=== PATIENT | female | born 1970 | race Caucasian/White ===

== ENCOUNTER 2020-11-20 12:25 | Emergency (ER) | payer MEDICAID, OTHER, SELFPAY ==
--- NOTE | ~2020-11-20 | CT_ITS ---
EXAMINATION: CT ABDOMEN AND PELVIS WITH CONTRAST CLINICAL INFORMATION: Diarrhea. Umbilical pain. Evaluate for obstruction. COMPARISON: None TECHNIQUE: Multidetector volumetric images were obtained from the superior aspect of the liver through the pubic symphysis following administration 75 mL of Omnipaque 350 intravenous contrast. Sagittal and coronal reformatted images were obtained on the technologist's workstation. Oral contrast: No This CT examination was performed using dose optimization techniques as appropriate, variously including the following: *Automated exposure control *Adjustment of mA and/or kV according to patient size (this includes techniques or standardized protocols for targeted exams where dose is matched to indication/reason for exam; i.e. extremities or head) *Use of iterative reconstruction technique DLP: 673 mGy-cm FINDINGS: LUNG BASES: There are a few calcified granulomata within the left lower lobe. Mild bronchial wall thickening present. Mild mosaic attenuation likely relates to air trapping. LIVER, GALLBLADDER, AND BILIARY TREE: The liver is normal in size, shape, and attenuation. No focal hepatic lesion or biliary ductal dilatation is present. Cholecystectomy. PANCREAS: Unremarkable. SPLEEN: Unremarkable. ADRENAL GLANDS: Unremarkable. KIDNEYS AND URETERS: The kidneys are normal in size, shape, and attenuation. No hydronephrosis, hydroureter, or calculi seen. There is a 3.2 cm cyst in the lower pole of the right kidney, likely a simple cyst. No perinephric stranding. BLADDER: Unremarkable. GASTROINTESTINAL TRACT: No evidence of bowel obstruction. Submucosal fat deposition present within the terminal ileum and throughout the ascending colon. Lesser degrees of submucosal fat deposition throughout the transverse and left colon. Mild submucosal edema suspected within the left colon. No perienteric inflammation. Stomach and small bowel otherwise unremarkable. Normal appendix. ABDOMINAL WALL: No significant hernia is appreciated. LYMPH NODES: Normal. VASCULAR: Unremarkable. PELVIC VISCERA: Uterus and ovaries unremarkable. OSSEOUS STRUCTURES: No acute or suspicious osseous abnormalities. CT/CT abdomen pelvis w con IMPRESSION: * No evidence of bowel obstruction. * Mild left colitis suspected. * Nonspecific intramural fatty deposition throughout the colon. This can be seen as a normal finding in the setting of obesity, but can also been seen in association with inflammatory bowel disease. * Cholecystectomy.
[2020-11-20 14:53] LABS: MANUAL DIFF FLAG NO
[2020-11-20] MEDS: 0.9 % Sodium Chloride 1,000 ML 999 ML IV (14:54)
[2020-11-20] MEDS: Morphine Sulfate 4 MG/ML CARTRIDGE IVPUSH (14:54)
[2020-11-20 14:56] LABS: Basophils Percent Auto 0.2 % (0-2); Eosinophils Percent Auto 0.9 % (0-4); Hematocrit 35.4 % (37-47); Hemoglobin 11.9 g/dl (12.0-16.0); Imm Gran Abs Auto 0.02 X10*3/uL (0.00-0.03); Imm Gran Pct Auto 0.5 % (0.0-0.4); Lymphocytes Absolute Auto 1.3 X10*3/uL (1.2-4.9); Lymphocytes Percent Auto 30.1 % (20-40); Mean Corpuscular HGB Conc 33.6 g/dl (31.0-35.0); Mean Corpuscular Hemoglobin 37.3 pg (27.0-33.0); Mean Platelet Volume 8.9 fL (9.4-12.3); Monocytes Absolute Auto 0.4 X10*3/uL (0.1-1.2); Monocytes Percent Auto 8.9 % (2-11); Neutrophils Absolute Auto 2.5 X10*3/uL (2.0-8.3); Neutrophils Percent Auto 59.4 % (45-73); Platelet Count 200 X10*3/uL (160-400); Red Blood Count 3.19 X10*6/uL (4.20-5.50); Red Cell Distribution Width 13.2 % (11.0-16.0); White Blood Count 4.3 X10*3/uL (4.8-10.8)
[2020-11-20 15:08] LABS: Lactic Acid 0.8 mmol/L (0.5-2.0)
[2020-11-20 15:10] LABS: COVID-19 Test Negative (Negative)
[2020-11-20 15:33] LABS: Alanine Aminotransferase 373 U/L (0-31); Albumin Level 4.1 g/dL (3.5-5.0); Alkaline Phosphatase 150 U/L (39-117); Anion Gap 14 (12-20); Aspartate Amino Transferase 643 U/L (5-31); Bilirubin Total 1.6 mg/dL (0.0-1.0); Blood Urea Nitrogen 9 mg/dL (9-16); Calcium 8.9 mg/dL (8.4-10.2); Carbon Dioxide 22 mmol/L (22-29); Chloride 107 mmol/L (96-108); Estimated Glomerular Filt Rate > 60; Glucose Random 82 mg/dL (60-115); Lipase 28 U/L (8-78); Potassium 4.1 mmol/L (3.3-5.1); Sodium 139 mmol/L (135-145)
--- NOTE | 2020-11-20 16:10 | ED_ITS ---
HPI - General Adult General Chief complaint: Abdominal Pain Stated complaint: vomiting abd swelling Time Seen by Provider: 11/20/20 14:01 Source: patient Mode of arrival: ambulatory Limitations: language barrier (Mohawk speaking only, rn clinical documentation specialist used to obtain history) History of Present Illness HPI narrative: 50-year-old female who presents emergency department for evaluation of abdominal pain and diarrhea. The patient states that her symptoms started 4 days prior to evaluation. She states that she had multiple episodes of diarrhea, too numerous to count, the diarrhea was foamy , watery without any blood. The patient did take Imodium and her diarrhea resolved for 1 day and then return. For the last 2 days, she has had diarrhea which is too numerous to count. She has also developed pain in her umbilical area of her abdomen she states the pain is a constant, squeezing pain which is 10/10 in is worse when she moves her bowels. She does not feel bloated. She denied nausea or vomiting. She denied fever, chills, chest pain or shortness of breath. The patient states that she rarely gets diarrhea. She denied any recent travel. She has not been on any antibiotics over the last 2 months. The patient has not had a COVID-19 infection and has not been vaccinated. Related Data Previous Rx's Medication Instructions Recorded metoclopramide HCl [Reglan] 10 mg PO Q6H PRN #14 tab 11/20/20 morphine 15 mg PO Q4-6H PRN #10 tab 11/20/20 Allergies Allergy/AdvReac Type Severity Reaction Status Date / Time aspirin [ASPIRIN] Allergy Unknown SWELLING Unverified 05/08/20 17:56 Review of Systems Review of Systems: Yes all other systems are reviewed and are negative [facility] Past Medical History [facility] Narrative: Patient has a history of hypertension, GERD, gastritis, asthma, arrhythmias and chronic back pain. She had a cholecystectomy in the past. She smokes 1/2 to 1 pack of cigarettes per day. She denies alcohol or drug use. She is and her is here in the emergency department with her. Social History Social History Advance Directives: No Advance Directives Information Provided: No Physical Exam Vital Signs: Vital Signs: Last Vital Signs Temp 98.7 F 11/20/20 16:35 Pulse 98 11/20/20 16:35 Resp 18 11/20/20 16:35 BP 104/66 11/20/20 16:35 Pulse Ox 100 11/20/20 16:35 Body Mass Index 36.6 Const: General: cooperative Orientation/consciousness: oriented to person and oriented to place Limitations: no limitations HENMT: Head: Yes normal to inspection, Yes normocephalic and Yes atraumatic Ears: external ears normal General nose exam: Normal external nose present Face and sinus: Yes normal facial exam Mouth: Normal oral and palatal mucosa present Throat: Yes posterior oropharynx normal Eyes: Periorbital: periorbital findings normal Eyelids: Yes eyelids normal Conjunctivae: conjunctivae normal Sclerae: sclerae normal Corneas: corneas normal Pupils: Equal, round and reactive pupils present Direct Ophthalmoscopy: normal light reflex Neck: Neck: Yes full ROM, Yes no lymphadenopathy, Yes no meningeal signs, Yes trachea midline and Yes supple Chest: Chest palpation & inspection: normal inspection of the chest and normal palpation of entire chest wall Resp: Effort & Inspection: normal respiratory effort and able to speak in complete sentences Auscultation: clear to auscultation bilaterally Cardio: Rate: regular rate Rhythm: regular rhythm Heart sounds: S1 normal heart sound present, S2 normal heart sound present and no murmurs GI: Inspection: Yes normal to inspection Palpation (GI): Soft to palpation, Tenderness to palpation present (GI) periumbilically (Moderate), no guarding, not rigid and No hepatosplenomegaly present : General: Yes no CVA tenderness Back/Spine/Pelvis: Back: no CVA tenderness Cervical Spine: normal cervical lordosis Thoracic/Lumbar Spine: thoracic and lumbar spine normal to inspection Skin: Lesions: no lesions Rashes: no rashes Wounds: no wounds Neuro: General: oriented to person, oriented to place and no meningeal signs Cranial nerves: Yes CN's II-XII intact bilaterally and Yes Equal, round and reactive pupils present Cognition (Neuro): normal cognition Motor exam (neuro): 5/5 motor strength present throughout Extrem: General: Yes normal to inspection and Yes full ROM Psych: Appearance: well kempt Mental Status: mental status grossly normal Speech and movement: Normal speech and movement present Affect: normal affect Attitude: cooperative Thought process: Normal thought process present Thought content: Normal thought content present Course Course Course Narrative: 50-year-old female who presents emergency department for evaluation of 4 days intractable diarrhea with umbilical pain. Physical examination did reveal tenderness with palpation of the periumbilical area of her stomach otherwise was unremarkable. CBC, CMP, lipase, C diff, stool culture, CT scan of the abdomen pelvis with IV contrast. The patient's pain was treated with morphine 4 mg IV. I also ordered normal saline IV x1 L. 1622: The patient's laboratory evaluation revealed low WBC of 4300, mild anemia with an H&H of 11.9 and 35.4. The patient's LFTs were abnormal with elevations in her AST of 643, ALT of 373 and an alk-phos of 150. Patient's total bilirubin was also elevated at 1.6. 1745: The patient is feeling significantly better after the above treatment. CT scan of the abdomen pelvis did not reveal a clear etiology for the patient's pain, there was no bowel obstruction, no evidence of severe colitis. I will add viral hepatitis studies (hepatitis A, B and C) to the patient's blood work. The patient was not able to give us a stool sample here in the emergency department. The patient will be treated with morphine 15 mg every 4-6 hours as needed for pain in this will also help stop her diarrhea. The patient was also given a prescription for Zofran to treat her nausea. 1753: [facility] revealed regular prescription for tramadol over a 1 year search interval. Medical Decision Making Lab Data Result diagrams: 11/20/20 14:47 11/20/20 14:48 Labs: Lab Results 11/20/20 11/20/20 11/20/20 Range/Units 14:47 14:47 14:48 WBC 4.3 L (4.8-10.8) X10*3/uL RBC 3.19 L (4.20-5.50) X10*6/uL Hgb 11.9 L (12.0-16.0) g/dl Hct 35.4 L (37-47) % MCV 111.0 H (80-98) fL MCH 37.3 H (27.0-33.0) pg MCHC 33.6 (31.0-35.0) g/dl RDW 13.2 (11.0-16.0) % Plt Count 200 (160-400) X10*3/uL MPV 8.9 L (9.4-12.3) fL Immature Gran % (Auto) 0.5 H (0.0-0.4) % Neut % (Auto) 59.4 (45-73) % Lymph % (Auto) 30.1 (20-40) % [place] % (Auto) 8.9 (2-11) % Eos % (Auto) 0.9 (0-4) % Baso % (Auto) 0.2 (0-2) % Lymph # (Auto) 1.3 (1.2-4.9) X10*3/uL [place] # (Auto) 0.4 (0.1-1.2) X10*3/uL Eos # (Auto) 0.0 (0.0-0.4) X10*3/uL Baso # (Auto) 0.0 (0.0-0.2) X10*3/uL Abs Immat Gran (auto) 0.02 (0.00-0.03) X10*3/uL Absolute Neuts (auto) 2.5 (2.0-8.3) X10*3/uL Absolute Nucleated RBC 0.000 (0.0-0.012) X10*3/uL Nucleated RBC % (auto) 0.0 (0.0-0.2) /100WBC Sodium 139 (135-145) mmol/L Potassium 4.1 (3.3-5.1) mmol/L Chloride 107 (96-108) mmol/L Carbon Dioxide 22 (22-29) mmol/L Anion Gap 14 (12-20) BUN 9 (9-16) mg/dL Creatinine 0.80 (0.5-1.4) mg/dL Estim Creat Clear Calc TNP Estimated GFR > 60 Random Glucose 82 (60-115) mg/dL Lactic Acid (0.5-2.0) mmol/L Calcium 8.9 (8.4-10.2) mg/dL Total Bilirubin 1.6 H (0.0-1.0) mg/dL AST 643 H (5-31) U/L ALT 373 H (0-31) U/L Alkaline Phosphatase 150 H (39-117) U/L Total Protein 7.0 (6.5-8.0) g/dL Albumin 4.1 (3.5-5.0) g/dL Lipase 28 (8-78) U/L COVID-19 (CARLENE) Negative (Negative) COVID-19 Clin Com See Note 11/20/20 Range/Units 14:48 WBC (4.8-10.8) X10*3/uL RBC (4.20-5.50) X10*6/uL Hgb (12.0-16.0) g/dl Hct (37-47) % MCV (80-98) fL MCH (27.0-33.0) pg MCHC (31.0-35.0) g/dl RDW (11.0-16.0) % Plt Count (160-400) X10*3/uL MPV (9.4-12.3) fL Immature Gran % (Auto) (0.0-0.4) % Neut % (Auto) (45-73) % Lymph % (Auto) (20-40) % [place] % (Auto) (2-11) % Eos % (Auto) (0-4) % Baso % (Auto) (0-2) % Lymph # (Auto) (1.2-4.9) X10*3/uL [place] # (Auto) (0.1-1.2) X10*3/uL Eos # (Auto) (0.0-0.4) X10*3/uL Baso # (Auto) (0.0-0.2) X10*3/uL Abs Immat Gran (auto) (0.00-0.03) X10*3/uL Absolute Neuts (auto) (2.0-8.3) X10*3/uL Absolute Nucleated RBC (0.0-0.012) X10*3/uL Nucleated RBC % (auto) (0.0-0.2) /100WBC Sodium (135-145) mmol/L Potassium (3.3-5.1) mmol/L Chloride (96-108) mmol/L Carbon Dioxide (22-29) mmol/L Anion Gap (12-20) BUN (9-16) mg/dL Creatinine (0.5-1.4) mg/dL Estim Creat Clear Calc Estimated GFR Random Glucose (60-115) mg/dL Lactic Acid 0.8 (0.5-2.0) mmol/L Calcium (8.4-10.2) mg/dL Total Bilirubin (0.0-1.0) mg/dL AST (5-31) U/L ALT (0-31) U/L Alkaline Phosphatase (39-117) U/L Total Protein (6.5-8.0) g/dL Albumin (3.5-5.0) g/dL Lipase (8-78) U/L COVID-19 (CARLENE) (Negative) COVID-19 Clin Com Discharge Plan Discharge Clinical Impression: Abnormal LFTs Abdominal pain Qualifiers: Abdominal location: periumbilical Qualified Code(s): R10.33 - Periumbilical pain Diarrhea Qualifiers: Diarrhea type: unspecified type Qualified Code(s): R19.7 - Diarrhea, unspecified Patient Disposition: Home, Self-Care Instructions: Acute Diarrhea (ED) Additional Instructions: Your laboratory evaluation was unremarkable except your liver tests were elevated. This can sometimes be caused by viral infections of the liver (hepatitis-A, hepatitis B or hepatitis C). You were tested for hepatitis A,B and C but these tests will not return today in your doctor will have to check these results for you. You need to follow-up with her doctor within 1 week to get repeat liver function tests and for re-evaluation of your abdominal pain and diarrhea. Take morphine 15 mg pills, 1 pill every 4-6 hours as needed for abdominal pain. This will cause constipation and stop the diarrhea as well. This medication can be addicting, if your concerned about addiction do not get this prescription filled or ask the pharmacist for less pills. Do not take your tramadol while you are taking morphine. Take Zofran (ondansetron) oral dissolving tablets, 1 tablet dissolved in mouth every 6-8 hours as needed for nausea and vomiting. Follow-up with your doctor in 2-7 days. Please return to the emergency department if your symptoms get worse or if you develop any symptoms that are concerning to you. Prescriptions: New morphine 15 mg tablet 15 mg PO Q4-6H PRN (Reason: pain) Qty: 10 RF: 0 metoclopramide HCl [Reglan] 10 mg tablet 10 mg PO Q6H PRN (Reason: nausea and vomiting) Qty: 14 RF: 0
[2020-11-20] MEDS: iohexoL 350 MG/ML 75 ML INFUS..BTL IV (16:21)
[2020-11-20 16:35] VITALS: BP 104/66; PULSE 98; RESP 18; TEMP 37.1; O2SAT 100; BMI 36.6
[2020-11-21 07:56] LABS: Hepatitis A Antibody IgG REACTIVE (Nonreactive); Hepatitis A Antibody IgM 0.28 Index (0-0.79); ~Hepatitis A Antibody IgG 12.68 S/CO (0.00-0.99); ~Hepatitis A Antibody IgM Nonreactive (Nonreactive)
[2020-11-21 07:57] LABS: ~HepC Num1 0.07 S/CO (0.00-0.79); ~Hepatitis C Antibody Nonreactive (Nonreactive)
[2020-11-22 09:51] LABS: Hepatitis BE Antibody NON-REACTIVE (NON-REACTIVE); Hepatitis BE Antigen NON-REACTIVE (NON-REACTIVE)
== END 2020-11-20 18:40 | disposition home or self-care (01) ==
PROVIDERS: Emergency Provider Emergency Medicine Emergency Medical Services; PCP Nurse Practitioner Family
DX: R10.33 Periumbilical pain (principal); R19.7 Diarrhea, unspecified
CPT/HCPCS: 36415; 74177; 80053; 83605; 83690; 85025; 86707; 86708; 86709; 86803; 87350; 87635; 96361; 96374; 99282; 99284; J2270; Q9967

== ENCOUNTER 2022-03-04 12:56 | Outpatient (REF) | payer MEDICAID, OTHER, SELFPAY ==
--- NOTE | ~2022-03-04 | MM_ITS ---
EXAMINATION: MM SCREENING DIGITAL BREAST TOMOSYNTHESIS, BILATERAL CLINICAL INFORMATION: Screening. Asymptomatic. The lifetime risk of breast cancer based on the Tyrer-Cuzick Model is 10%. COMPARISON: Mammography: 02/06/2019, 12/07/2017, 11/08/2016 TECHNIQUE: Digital breast tomosynthesis is performed in both the craniocaudal and mediolateral oblique views along with computer-aided detection (CAD). Synthesized 2D images are generated from the tomosynthesis. FINDINGS: There are scattered areas of fibroglandular density (ACR BI-RADS breast composition Category b). Parenchymal pattern is similar to prior studies. No significant mass. Right breast again shows intramammary node mid upper outer quadrant. Left breast again shows small stable nodularity anterior 12:00. No developing density or architectural abnormality. No abnormal calcifications. The axilla and skin contours are unremarkable. No significant changes. MM/MM tomosynthesis screening BI IMPRESSION: No mammographic evidence of malignancy. ASSESSMENT: BI-RADS 2: Benign RECOMMENDATION: Routine annual mammography screening. This patient's information was entered into a reminder system with a target due date for their next mammogram.
--- NOTE | ~2022-03-04 | MM_ITS ---
EXAMINATION: BONE DENSITOMETRY CLINICAL INDICATION: Menopause. COMPARISON: None (current study represents initial baseline exam). TECHNIQUE: Using a Superb[employer] DXA System (software version: 13.1) manufactured by [employer], dual-energy x-ray absorptiometry was performed of the lumbar spine and left hip. The images are of good technical quality. Summary results are attached. FINDINGS: AP SPINE L1-L4: BMD 1.222 g/cm2, Z-score 0.1, T-score 0.3, normal. LEFT FEMUR, NECK: BMD 1.048 g/cm2, Z-score 0.4, T-score 0.1, normal. LEFT FEMUR, TOTAL: BMD 1.127 g/cm2, Z-score 0.9, T-score 0.9, normal. IDENTIFIED RISK FACTORS: Menopause, history of fracture (adult), recurrent falls, tobacco use (current smoker). HISTORY OF FRACTURE: Pelvis; ankle. MEDICATIONS: Vitamin D. MM/XR DEXA axial skeleton IMPRESSION: 1. DIAGNOSIS: Normal bone density based on the lowest T-score value of 0.1 in the femoral neck applying World Health Organization criteria. 2. 10-YEAR FRACTURE RISK PREDICTION, FRAX: According to the guidelines, FRAX calculation should only be performed on patients in the osteopenia bone density category. Therefore, FRAX was not performed on this patient. 3. Treatment Recommendations: NOF guidelines recommend consideration for treatment in postmenopausal women and men age 50 and older presenting with the following: -A hip or vertebral (clinical or morphometric) fracture. -T-score less than or equal to -2.5 at the femoral neck or spine after appropriate evaluation to exclude secondary causes. -Low bone mass at the hip or spine and a 10-year fracture probability by FRAX of greater than or equal to 3% for hip fracture or greater than or equal to 20% for major osteoporotic fracture based on the [place] adapted WHO algorithm. 4. Other Recommendations: All treatment decisions require clinical judgment and consideration of individual patient factors, including patient preferences, comorbidities, previous drug use, risk factors not captured in the FRAX model (e.g. frailty, falls, vitamin D deficiency, increased bone turnover, interval significant decline in bone density) and possible under or overestimation of fracture risk by FRAX. FUTURE SCAN RECOMMENDATION: People with diagnosed cases of osteoporosis or at high risk for fracture should have regular bone mineral density tests. For patients eligible for Medicare, routine testing is allowed once every 2 years. The testing frequency can be increased to one year for patients who have rapidly progressing disease, those who are receiving or discontinuing medical therapy to restore bone mass, or have additional risk factors.
== END 2022-03-04 12:57 | disposition home or self-care (01) ==
LOC: HO.MAMMO 12:56
PROVIDERS: Visit Provider Nurse Practitioner Family
DX: Z12.31 Encounter for screening mammogram for malignant neoplasm of breast (principal); Z13.820 Encounter for screening for osteoporosis; Z78.0 Asymptomatic menopausal state
CPT/HCPCS: 77063; 77067; 77080

== ENCOUNTER 2022-05-26 12:52 | Outpatient (REF) | payer MEDICAID, OTHER, SELFPAY ==
--- NOTE | ~2022-05-26 | CT_ITS ---
EXAMINATION: CT CHEST WITHOUT CONTRAST CLINICAL INFORMATION: Multiple lung nodules. COMPARISON: None TECHNIQUE: Multidetector volumetric CT imaging of the chest was done. Axial MIP volume rendering provided. Sagittal and coronal reformatted images were obtained. This CT examination was performed using dose optimization techniques as appropriate, variously including the following: *Automated exposure control *Adjustment of mA and/or kV according to patient size (this includes techniques or standardized protocols for targeted exams where dose is matched to indication/reason for exam; i.e. extremities or head) *Use of iterative reconstruction technique DLP: 235 mGy-cm FINDINGS: BROADCAST DIRECTOR OPERATIONS: Unremarkable. LUNGS: The lungs are well-expanded and clear of acute pneumonic consolidation. There are multiple calcified 1 to 3 mm nodules throughout both lungs with the largest in the left lower lobe lateral basal segment measuring 4 mm image 40/3. Noncalcified 3 mm nodule left lower lobe axial image 341/5 and 3 mm nodule left upper lobe axial image 168/5. The noncalcified nodules are unchanged to previous exam 02/17/2018. There is no acute pneumonic consolidation, ground-glass density or atelectasis. MEDIASTINUM: The thyroid lobes are slightly enlarged but symmetrical. Central trachea and the bronchi are widely patent. Heart size and the great vessels are normal caliber. No pericardial effusion seen. No abnormal size mediastinal or hilar lymph nodes seen. CORONARY ARTERY CALCIFICATION: None visualized on this study. PLEURA: There is no pleural effusion. No pleural mass or thickening. AXILLA: No lymphadenopathy. UPPER ABDOMEN: Visualized liver, spleen, pancreas and adrenal glands are unremarkable. Gallbladder is not visualized. OSSEOUS STRUCTURES: Unremarkable. CT/CT chest wo IV con IMPRESSION: 1. Multiple bilateral calcified and 2 noncalcified nodules are stable. No new nodules seen. 2. No abnormal mediastinal or hilar lymphadenopathy. Fleischner guidelines were followed.
== END 2022-05-26 12:53 | disposition home or self-care (01) ==
LOC: HO.CT 12:52
PROVIDERS: Visit Provider Registered Nurse
DX: R91.8 Other nonspecific abnormal finding of lung field (principal)
CPT/HCPCS: 71250

== ENCOUNTER 2023-05-02 15:14 | Outpatient (REF) | payer MEDICAID, OTHER, SELFPAY ==
--- NOTE | 2023-05-02 | PFT_ITS ---
INDICATION: Asthma. SPIROMETRY: FEV1 to FVC of 86% with an FEV1 of 1.64 L, which is 64% predicted. FVC of 1.9 L, which is 60% predicted. No significant response to bronchodilators noted. Maximum voluntary ventilation 64% predicted. LUNG VOLUMES: Total capacity 66% predicted with an expiratory volume of 9% predicted. DIFFUSION CAPACITY: DLCO 57% predicted, thus corrected 79% when correcting for the alveolar volume. COMPARISONS: None. INTERPRETATION: No obstructive ventilatory defects appreciated. No significant response to bronchodilators noted. There is also a moderate decreased in the maximum voluntary ventilation, which could be secondary to deconditioning. Lung volumes to demonstrate a restrictive ventilatory defect consistent with [id number] restrictive lung disease in part due to an elevated BMI, although neuromuscular conditions and/or parenchymal lung conditions cannot be ruled out. The patient does have a moderate diffusion impairment, which partially corrects when correcting for the alveolar volume. Need to consider underlying hypoexpansion due to body habitus, so the parenchymal conditions and/or neuromuscular conditions, pulmonary vascular conditions should all be considered. Clinical correlation warranted. MD ALOK Cruz/GARIMA / [phone]
== END 2023-05-02 15:15 | disposition home or self-care (01) ==
LOC: HO.RESP 15:14
PROVIDERS: PCP Registered Nurse; Visit Provider Registered Nurse
DX: J44.9 Chronic obstructive pulmonary disease, unspecified (principal)
CPT/HCPCS: 94010; 94727; 94729

== ENCOUNTER → 2023-05-02 15:20 | Outpatient (BNV) | payer MEDICAID, SELFPAY | PROVIDERS: PCP Registered Nurse; Visit Provider Hospitalist | DX: J45.909 Unspecified asthma, uncomplicated (principal) | CPT/HCPCS: 94060; 94727; 94729 ==

== ENCOUNTER 2024-02-15 10:58 | Outpatient (REF) | payer MEDICAID, OTHER, SELFPAY | END 2024-02-15 10:59 | disposition home or self-care (01) | LOC: HO.MAMMO 10:58 | PROVIDERS: PCP Registered Nurse; Visit Provider Registered Nurse | DX: Z12.31 Encounter for screening mammogram for malignant neoplasm of breast (principal) | CPT/HCPCS: 77063; 77067 ==

== ENCOUNTER → 2024-02-15 11:30 | Outpatient (BNV) | payer SELFPAY | PROVIDERS: PCP Registered Nurse; Visit Provider Radiology Diagnostic Radiology | DX: Z12.31 Encounter for screening mammogram for malignant neoplasm of breast (principal) | CPT/HCPCS: 77063; 77067 ==

== ENCOUNTER 2024-03-23 14:05 | Outpatient (REF) | payer SELFPAY ==
[2024-03-23 16:33] LABS: Alanine Aminotransferase 29 U/L (0-31); Albumin Level 4.3 g/dL (3.5-5.0); Alkaline Phosphatase 87 U/L (39-117); Anion Gap 13 (12-20); Aspartate Amino Transferase 31 U/L (5-31); Bilirubin Total 0.3 mg/dL (0.0-1.0); Blood Urea Nitrogen 12 mg/dL (9-16); Calcium 10.2 mg/dL (8.4-10.2); Carbon Dioxide 23 mmol/L (22-29); Chloride 109 mmol/L (96-108); Cholesterol 156 mg/dL (<200); Estimated Glomerular Filt Rate > 60; Glucose Random 117 mg/dL (60-115); HDL Cholesterol 44 mg/dL (>40); LDL Cholesterol Calculated 47 mg/dL (<100); Potassium 4.5 mmol/L (3.3-5.1); Sodium 140 mmol/L (135-145); Total Protein 7.9 g/dL (6.5-8.0); Triglycerides 326 mg/dL (<150)
== END 2024-03-23 14:06 | disposition home or self-care (01) ==
LOC: HO.HHCL 14:05
PROVIDERS: Visit Provider Registered Nurse
DX: I10 Essential (primary) hypertension (principal)
CPT/HCPCS: 36415; 80053; 80061

== ENCOUNTER 2025-02-14 17:31 | Outpatient (REF) | payer SELFPAY ==
[2025-02-14 17:50] LABS: Methadone Screen, Urine Not Detected (Not Detect)
--- OUTSIDE RECORDS SUMMARY | 2025-02-14 19:57 | XMS_ITS | Encounter Summary ---
Author Organization [employer] Address [address] [place] [address] [address] [place] [address] Care Team Providers Care Quality Measurement Specialist Name Role Phone Wanda [facility] Primary Care Provider [phone] Reason for Visit * Reason Comments Med Refill Encounter Details Date Type Department Care Team (Late st Contact Info) Description 09/22/2023 Refill [facility] [address], [place] [id number] Laura Harper DO [address] [place], [place] [phone] Chronic low back pain with sciatica, sciatica laterality unspecified, unspecified back pain laterality Social History Tobacco Use Types Packs/Day Years Used Date Smoking Tobacco: Every Day Cigarettes Smokeless Tobacco: Never Alcohol Use Standard Drinks/Week Comments Not Currently 0 (1 standard drink = 0.6 oz pur e alcohol) Depression Answer Date Recorded Patient Health Questionnaire-9 Score 0 08/08/2023 Patient Health Questionnaire-9 Score 0 08/08/2023 Last PHQ-9: Questionnaire Data Not on file 1 10/09/2022 Housing Stability Answer Date Recorded What is your housing situation today? I have kiki ruiz 06/17/[address] you li ve. Do you have problems with any of the following? None of the above 06/17/2023 Food Insecurity Answer Date Recorded Within the past 12 months, y ou worried that your food would run out before you got money to buy more: Never True 06/17/2023 Within the past 12 months,th e food you bought just didn't last and you didn't have enough money to get more: Never True Transportation Answer Date Recorded In the past 12 months, has l ack of transportation kept you from medical appts, meetings, work or from getting things needed for daily living? No 06/17/2023 Utilities Answer Date Recorded In the past 12 months, has t he electric, gas, oil or water company threatened to shut off services in your home? No 06/17/2023 Depression Answer Date Recorded Patient Health Questionnaire-2 Score 0 08/08/2023 Comments Unknown Sex and Gender Information Value Date Recorded Sex Assigned at Female 06/21/2022 10:21 AM EDT Legal Sex Female 10:21 AM EDT Gender Identity Female 06/21/2022 10:21 AM EDT Sexual Orientation Choose not to disclose 2021 10:21 AM EDT documented as of this encounter Plan of Treatment Upcoming Encounters Date Type Department Care Team (Late st Contact Info) Description 03/20/2025 9:00 AM EDT Office Visit [address] [address] Nelly Muñoz FNP [address] [place] [id number] 06/19/2025 10:00 AM EDT Clinical Support [address] [address] Haylye Marquez, RN documented as of this encounter Goals Goal Patient Goal Type Associated Problems Recent Progress Patient-Stated? Author Reduce cigarette use Tobacco Use No Giselle Villanueva, MarlenaD documented as of this encounter Visit Diagnoses Diagnosis Chronic low back pain with sciatica, sciatica laterality unspecified, unspecified back pain laterality documented in this encounter Additional Health Concerns Assessment Noted Time PHQ-9 Depression Total Score: 0 08/08/20 23 11:26 AM EST documented as of this encounter Care Teams Quality Measurement Specialist Relationship Specialty Start Date End Date Nelly Muñoz FNP [address] [place] [id number] PCP - General Family Medicine 04/18/22 documented as of this encounter
== END 2025-02-14 17:32 | disposition home or self-care (01) ==
LOC: HO.HHCLNP 17:31
PROVIDERS: Visit Provider Registered Nurse
DX: Z79.891 Long term (current) use of opiate analgesic (principal)
CPT/HCPCS: 36415; 80307

== ENCOUNTER 2025-05-14 10:38 | Outpatient (REF) | payer MEDICAID, OTHER, SELFPAY ==
--- OUTSIDE RECORDS SUMMARY | 2025-05-14 13:02 | XMS_ITS | Encounter Summary ---
Author Organization [employer] Address [address] [place] [address] 7t [place] [address] Care Team Providers Care Engineer Chief Name Role Phone [facility] Primary Care Provider [phone] Reason for Visit * Reason Onset Date Comments Med Refill 05/13/2025 Encounter Details Date Type Department Care Team (Late st Contact Info) Description 05/13/2025 Refill [facility] MED & PEDS [address] [place], [place] [phone] [facility] [address] [facility] [place] [address] Chronic low back pain with sciatica, sciatica laterality unspecified, unspecified back pain laterality Social History Tobacco Use Types Packs/Day Years Used Date Smoking Tobacco: Every Day Cigarettes Smokeless Tobacco: Never Alcohol Use Standard Drinks/Week Comments Not Currently 0 (1 standard drink = 0.6 oz pur e alcohol) Depression Answer Date Recorded Patient Health Questionnaire-9 Score 0 03/20/2025 Patient Health Questionnaire-9 Score 0 03/20/2025 Last PHQ-9: Questionnaire Data Not on file 0 03/20/2025 Housing Stability Answer Date Recorded What is your housing situation today? I have kiki ruiz 05/02/[address] you li ve. Do you have problems with any of the following? None of the above 05/02/2024 Food Insecurity Answer Date Recorded Within the past 12 months, y ou worried that your food would run out before you got money to buy more: Never True 05/02/2024 Within the past 12 months,th e food you bought just didn't last and you didn't have enough money to get more: Never True 06/2024 Transportation Answer Date Recorded In the past 12 months, has l ack of transportation kept you from medical appts, meetings, work or from getting things needed for daily living? No 05/02/2024 Utilities Answer Date Recorded In the past 12 months, has t he electric, gas, oil or water company threatened to shut off services in your home? No 05/02/2024 Depression Answer Date Recorded Patient Health Questionnaire-2 Score 0 03/20/2025 Internet Access Answer Date Recorded Internet Access Q1 Yes 05/02/2024 Internet Access Q2 Not on file 05/02/2024 Comments Unknown Sex and Gender Information Value Date Recorded Sex Assigned at Female 06/21/2022 10:21 AM EDT Legal Sex Female 10:21 AM EDT Gender Identity Female 06/21/2022 10:21 AM EDT Sexual Orientation Choose not to disclose 2021 10:21 AM EDT documented as of this encounter Miscellaneous Notes * Addendum Note - Rohit Marquez RN - 05/13/2025 10:46 AM EDTAddended by: ROHIT MARQUEZ on: 05/13/2025 10:46 AM Modules accepted: Orders * Telephone Encounter - Claudia Lu LPN - 05/13/2025 10:27 AM EDT Received request on traMADol (Ultram) 50 MG tablet documented in this encounter Plan of Treatment Upcoming Encounters Date Type Department Care Team (Late st Contact Info) Description 06/19/2025 10:00 AM EDT Clinical Support [facility] MEDICINE [address] [place] [phone] Rohit Marquez RN documented as of this encounter Goals Goal Patient Goal Type Associated Problems Recent Progress Patient-Stated? Author Reduce cigarette use Tobacco Use No Giselle Villanueva, PharmD documented as of this encounter Visit Diagnoses Diagnosis Chronic low back pain with sciatica, sciatica laterality unspecified, unspecified back pain laterality documented in this encounter Additional Health Concerns Assessment Noted Time PHQ-9 Depression Total Score: 0 03/20/20 25 8:57 AM EDT documented as of this encounter Care Teams Engineer Chief Relationship Specialty Start Date End Date Nelly Muñoz FNP [address] [place] [id number] PCP - General Family Medicine 04/18/22 documented as of this encounter
--- OUTSIDE RECORDS SUMMARY | 2025-05-14 13:02 | XMS_ITS | Encounter Summary ---
Author Organization [employer] Address [address] [place] [address] 7t [place] [address] Care Team Providers Care Tobacco Conditioner Name Role Phone Wanda [facility] Primary Care Provider [phone] Reason for Visit * Reason Comments Med Refill Encounter Details Date Type Department Care Team (Late st Contact Info) Description 09/22/[address] [facility] MEDICINE [address] [place], [place] [phone] Laura Harper DO [address] [place], [place] [phone] Chronic low back pain with sciatica, sciatica [...] Description 06/19/2025 10:00 AM EDT Clinical Support [facility] MEDICINE [address] [place] [phone] Hayley Marquez, BELKIS documented as of this encounter Goals Goal [...] documented as of this encounter Care Teams Tobacco Conditioner Relationship Specialty Start Date End Date Nelly Muñoz FNP [address] [place] [address] PCP - General Family Medicine 04/18/22 documented as of this encounter
--- OUTSIDE RECORDS SUMMARY | 2025-05-14 13:02 | XMS_ITS | Encounter Summary ---
Author Organization [employer] Address [address] [place] [address] 7 [place] [address] Care Team Providers Care Ship'S Master Name Role Phone [facility] Primary Care Provider [phone] Reason for Visit * Reason Onset Date Comments Med Refill 07/20/2023 Encounter Details Date Type Department Care Team ([facility] st Contact Info) Description 07/20/2023 Telephone [facility] MEDICINE [address] [place], [place] [phone] [facility] [address] [place] [address] Med Refill Social History Tobacco Use Types Packs/Day Years Used Date Smoking Tobacco: Every Day Cigarettes Smokeless Tobacco: Never Alcohol Use Standard Drinks/Week Comments Not Currently 0 (1 standard drink = 0.6 oz pur e alcohol) Depression Answer Date Recorded Patient Health Questionnaire-9 Score 0 08/24/2022 Housing Stability Answer Date Recorded What is [...] Date Recorded Patient Health Questionnaire-2 Score 0 08/24/2022 Comments Unknown Sex and Gender Information Value Date Recorded Sex Assigned at Female 06/21/2022 10:21 AM EDT Legal Sex Female 10:21 AM EDT Gender Identity Female 06/21/2022 10:21 AM EDT Sexual Orientation Choose not to disclose 2021 10:21 AM EDT documented as of this encounter Miscellaneous Notes * Telephone Encounter - Laura Blackburn LPN - 07/20/2023 11:45 AM EST Medication pended to PCP. * Telephone Encounter - Maria T Cruz - 07/20/2023 11:42 AM EST Tc from pt requesting med refill on; enalapril (Vasotec) 20 MG tablet Pt is running out documented in this encounter Plan of Treatment Upcoming Encounters Date Type Department Care Team (Late st Contact Info) Description 06/19/2025 10:00 AM EDT Clinical Support [facility] MEDICINE [address] [place] [address] Hayley Marquez, RN documented as of this encounter Goals Goal Patient Goal Type Associated Problems Recent Progress Patient-Stated? Author Reduce cigarette use Tobacco Use No Giselle Villanueva, PharmD documented as of this encounter Visit Diagnoses Not on filedocumented in this encounter Additional Health Concerns Assessment Noted Time PHQ-9 Depression Total Score: 0 08/24/19 23 2:21 PM EST documented as of this encounter Care Teams Ship'S Master Relationship Specialty Start Date End Date Nelly Muñoz FNP [address] [place] [address] PCP - General Family Medicine 04/18/22 documented as of this encounter
--- OUTSIDE RECORDS SUMMARY | 2025-05-14 13:02 | XMS_ITS | Encounter Summary ---
Author Organization [employer] Address [address] [place] [address] 7t [place] [address] Care Team Providers Care Design And Sales Consultant Name Role Phone [facility] Primary Care Provider Encounter Details Date Type Department Care Team (Late Contact Info) Description 01/19/2023 [facility] [employer] [address] [place] [address] [facility] [address] [place] [address] Social History Tobacco Use Types Packs/Day Years Used Date Smoking Tobacco: Every Day Cigarettes Smokeless Tobacco: Never Alcohol Use Standard Drinks/Week Comments Never 0 (1 standard drink = 0.6 oz pur e alcohol) Depression Answer Date Recorded Patient Health Questionnaire-9 Score 0 08/24/2022 Depression Answer Date Recorded Patient Health Questionnaire-2 Score 0 08/24/2022 Comments Unknown Sex and Gender Information Value Date Recorded Sex Assigned at Female 06/21/2022 10:21 AM EDT Legal Sex Female 10:21 AM EDT Gender Identity Female 06/21/2022 10:21 AM EDT Sexual Orientation Choose not to disclose 2021 10:21 AM EDT COVID-19 Exposure Response Date Recorded In the last 10 days, have yo u been in contact with someone who was confirmed or suspected to have Coronavirus/COVID-19? No / Unsure 01/11/2023 1:55 PM EDT documented as of this encounter Plan of Treatment Upcoming Encounters Date Type Department Care Team (Late Contact Info) Description 06/19/2025 10:00 AM EDT Clinical Support [facility] MEDICINE [address] [place] [address] Hayley Marquez, RN documented as of this encounter Visit Diagnoses Not on filedocumented in this encounter Additional Health Concerns Assessment Noted Time PHQ-9 Depression Total Score: 0 08/24/19 23 2:21 PM EST documented as of this encounter Care Teams Design And Sales Consultant Relationship Specialty Start Date End Date Nelly Muñoz FNP [address] [place] [address] PCP - General Family Medicine 04/18/22 documented as of this encounter
--- OUTSIDE RECORDS SUMMARY | 2025-05-14 13:02 | XMS_ITS | Encounter Summary ---
Author Organization [employer] Address [address] [place] [address] [address]t [place] [address] Care Team Providers Care Featherer Name Role Phone Wanda [facility] Primary Care Provider Reason for Visit * Reason Comments Med Refill Encounter Details Date Type Department Care Team (Late st Contact Info) Description 09/22/2023 Refill [facility] MEDICINE [address] [place], [place] [phone] Laura Harper DO [address] [place], [place] [phone] Chronic low back pain with sciatica, sciatica [...] Description 06/19/2025 10:00 AM EDT Clinical Support [facility] MEDICINE [address] [place] [address] Hayley Marquez, BELKIS documented as of this [...] documented as of this encounter Care Teams Featherer Relationship Specialty Start Date End Date Nelly Muñoz FNP [address] [place] [address] PCP - General Family Medicine 04/18/22 documented as of this encounter
--- OUTSIDE RECORDS SUMMARY | 2025-05-14 13:03 | XMS_ITS | Encounter Summary ---
Author Organization [employer] Address [address] [place] [address] 7t [place] [address] Care Team Providers Care Snipper Name Role Phone Wanda [facility] Primary Care Provider Reason for Visit * Reason Comments Med Refill Encounter Details Date Type Department Care Team (Late st Contact Info) Description 10/21/2023 Refill [facility] MEDICINE [address] [place], [place] [phone] Laura Harper DO [address] [place], [place] [phone] Chronic low back pain with sciatica, sciatica [...] Description 06/19/2025 10:00 AM EDT Clinical Support [facility] MEDICINE [address] [place] [address] Hayley Marquez, BELKIS documented as of this [...] documented as of this encounter Care Teams Snipper Relationship Specialty Start Date End Date Nelly Muñoz FNP [address] [place] [address] PCP - General Family Medicine 04/18/22 documented as of this encounter
--- OUTSIDE RECORDS SUMMARY | 2025-05-14 13:03 | XMS_ITS | Encounter Summary ---
Author Organization [employer] Address [address] [place] [address] 7 [place] [address] Care Team Providers Care Market Research Executive Name Role Phone [facility] Primary Care Provider [phone] Reason for Visit * Reason Onset Date Comments Reschedule 11/23/2023 Pt cancelled SOFTWARE BUILD ENGINE[employer] RV Today 11/23/2023 Encounter Details Date Type Department Care Team (Late st Contact Info) Description 11/23/2023 Telephone [facility] MEDICINE [address] [place] [address] [facility] [address] [place] [address] Reschedule; Pt cancelled SOFTWARE BUILD ENGINEER RV Today Social History Tobacco Use Types Packs/Day Years [...] encounter Miscellaneous Notes * Telephone Encounter - Hayley Marquez RN - 11/23/2023 11:58 AM EDT Patient cancelled SOFTWARE BUILD ENGINEER RV appt today. TC via P/I#[id number], pt stated she fell down 3 steps in her home. States she landed on her right knee, denies hitting her head. Denies any anticoagulant use. States her feet just got tangled up. C/O increased pain in right knee and lower back. She is able to bare minimal weight to right leg at this time, She was applying heat. Advised to stop heat and use ice packs for the first 24 hours. Advised to go to [facility] for evaluation, states we are too far away. Advised to go to a local urgent care for evaluation. Patient states she will if the pain doesn't lessen. SOFTWARE BUILD ENGINEER RV rescheduled for 01/10/24 @ 10am. Appt reminder mailed. Will FYI PCP. * Telephone Encounter - Maria T Cruz - 11/23/2023 9:41 AM EDT Tc from pt requesting r/s SOFTWARE BUILD ENGINEER appt documented in this encounter Plan of Treatment Upcoming Encounters Date Type Department Care Team (Late st Contact Info) Description 06/19/2025 10:00 AM EDT Clinical Support [facility] MEDICINE [address] [place] [address] Hayley Marquez, RN documented as of this [...] documented as of this encounter Care Teams Market Research Executive Relationship Specialty Start Date End Date Nelly Muñoz FNP [address] [place] [address] PCP - General Family Medicine 04/18/22 documented as of this encounter
--- OUTSIDE RECORDS SUMMARY | 2025-05-14 13:03 | XMS_ITS | Clinical Summary ---
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 with computer-aided detection (CAD). Synthesized 2D images are generated from the tomosynthesis. FINDINGS: The breasts are almost entirely fatty (ACR BI-RADS breast composition Category a). There are no significant masses, abnormal calcifications, or other abnormalities. MM/MM tomosynthesis screening BI IMPRESSION: No mammographic evidence of malignancy. ASSESSMENT: BI-RADS BI-RADS 1 - Negative RECOMMENDATION: Routine annual mammography screening. 1 year F/U This examination should not preclude the clinical evaluation of a suspicious palpable abnormality. This patient's information was entered into a reminder system with a target due date for their next mammogram. 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 [address] Mammography Report Signed Patient: Michael Dias#: [id number] : 1970Acct:[id number] Age/Sex: 53 / FADM Date: 02/15/24 Loc: LITO Attending Dr: Nelly Muñoz ORTHOTIC AIDE Ordering Physician: Nelly Muñoz FNPResults: 1Nega tive Date of Service: 02/15/24Follow Up: 1 Year From Orig inal Mammogram Procedure(s): MM tomosynthesis screening BI Accession Number(s): [id number] cc: Nelly Muñoz ORTHOTIC AIDE EXAMINATION: MM SCREENING DIGITAL BREAST TOMOSYNTHESIS, BILATERAL CLINICAL INFORMATION: Screening. Asymptomatic. COMPARISON: Mammography: This study is compared with prior exams dating back to 2018. TECHNIQUE: Digital breast tomosynthesis is performed in both the craniocaudal and mediolateral oblique views along with computer-aided detection (CAD). Synthesized 2D images are generated from the tomosynthesis. FINDINGS: The breasts are almost entirely fatty (ACR BI-RADS breast composition Category a). There are no significant masses, abnormal calcifications, or other abnormalities. MM/MM tomosynthesis screening BI IMPRESSION: No mammographic evidence of malignancy. ASSESSMENT: BI-RADS BI-RADS 1 - Negative RECOMMENDATION: Routine annual mammography screening. 1 year F/U This examination should not preclude the clinical evaluation of a suspicious palpable abnormality. This patient's information was entered into a reminder system with a target due date for their next mammogram. 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 There is no laboratory evidence of HCV infection. In most cases, no further action is required. However, if recent HCV exposure is suspected, a test for HCV RNA (test code 21842) is suggested. For additional information please refer to http://education.[employer]/faq/KWD58p3 (This link is being provided for informational/ educational purposes only.) 03/04/2022 2:28 PM EDT [facility] HISTORICAL/NON ORDERABLE LABS Final Result [facility] [address] [place] [address], [place] * THINPREP PAP (11/26/2020 9:55 AM EDT) Clinical Information: None given [facility] COMMENT SEE COMMENT [facility] Comment: EXPLANATORY NOTE: The Pap is a screening test for cervical cancer. It is not a diagnostic test and is subject to false negative and false positive results. It is most reliable when a satisfactory sample, regularly obtained, is submitted with relevant clinical findings and history, and when the Pap result is evaluated along with historic and current clinical information. Senior Python Developer : SEE COMMENT [facility] Comment: KN, CT(ASCP) CT screening location: [place] [address] Interpretation/R esult: Negative for intraepithelial lesion or malignancy. [facility] LMP: NONE [facility] Prev. BX: NONE [facility] Prev. PAP: NONE [facility] SOURCE: None given [facility] Statement Of Adequacy: SEE COMMENT [facility] Comment: Satisfactory for evaluation. Endocervical/transformation zone component present. Age and/or menstrual status not provided 11/26/2020 9:55 AM EDT Alison Delia ORTHOTIC AIDE LAB PATHOLOGY ORDERABLES Final Result Performing Organization Address [facility] de Phone Number [facility] [address] * HPV mRNA E6/E7 (11/26/2020 9:55 AM EDT) HPV nRNA E6/E7 Not Detected Not Detected [facility] Comment: Methodology: Thermostat Repairer-Mediated Amplification This assay detects E6/E7 viral messenger RNA (mRNA) from 14 high-risk HPV types (16,18,31,33,35,39,45,51,52,56,58,59,66,68). The analytical performance characteristics of this assay have been determined by [employer]. The modifications have not been cleared or approved by the FDA. This assay has been validated pursuant to the CLIA regulations and is used for clinical purposes. For additional information, please refer to http://education.ShopWell.MI Airline/faq/EAB654l3 (This link if provided for information/ educational purposes only.) 11/26/2020 9:55 AM EDT [facility] LAB BLOOD ORDERABLES Final Res ult Performing Organization Address [facility] Co de Phone Number [facility] [address] from Last 3 Months or Most Recently Relevant to Health Maintenance Insurance [employer] [employer] Care Teams Candy Separator Enrobing Relationship Specialty Start Date End Date Nelly Muñoz FNP [address] [place] [id number] PCP - General Family Medicine 04/18/22
== END 2025-05-14 10:39 | disposition home or self-care (01) ==
LOC: HO.MAMMO 10:38
PROVIDERS: PCP Registered Nurse; Visit Provider Registered Nurse
DX: Z12.31 Encounter for screening mammogram for malignant neoplasm of breast (principal)
CPT/HCPCS: 77063; 77067

== ENCOUNTER → 2025-05-14 11:30 | Outpatient (BNV) | payer MEDICAID, SELFPAY | PROVIDERS: PCP Registered Nurse; Visit Provider Radiology Body Imaging | DX: Z12.31 Encounter for screening mammogram for malignant neoplasm of breast (principal) | CPT/HCPCS: 77063; 77067 ==